=== PATIENT | male | born 1985 | race Caucasian/White ===

== ENCOUNTER 2019-06-05 22:07 | Emergency (ER) | payer OTHER ==
[~2019-06-05] VITALS: Ht 172.7 cm; Wt 87.1 kg
[2019-06-05 22:11] VITALS: BP 167/103
--- NOTE | 2019-06-05 22:22 | NUR ---
PT AMBULATED TO LOBBY TO A/W BED
--- NOTE | 2019-06-05 22:26 | NUR ---
AMBULATED TO ER BED 9
--- NOTE | 2019-06-05 22:30 | NUR ---
PT LAC SOAKED IN WARM WATER WITH BETADINE
[2019-06-05] MEDS ORDERED: LIDOCAINE MPF 1% 10 MG/ML VIAL INJ ONE (22:40)
--- NOTE | 2019-06-05 22:40 | NUR ---
DR. WILBURN AT BEDSIDE EXAMING PT
--- NOTE | 2019-06-05 22:42 | NUR ---
33 Y/O MALE C/O HUMAN BITE TO LEFT MIDDLE FINGER WITH 10/10 PAIN X 40 MIN AGO. VSS. BED LOW AND LOCKED AND 1 SIDERAIL UP. DENIES N/V/D; SKIN IS PINK/WARM/DRY; AAOX4 WITH EVEN AND STEADY GAIT; PT DENIES ANY FEVER, CP, SOB, OR COUGH AT THIS TIME; PATIENT POSITIONED FOR COMFORT; HOB ELEVATED. MEDICAL HX: PT DENIES NKA
--- NOTE | 2019-06-05 22:44 | NUR ---
LAC TRAY SET UP AT BED SIDE, NURSE NOTIFIED
--- NOTE | 2019-06-05 23:30 | NUR ---
PT SITTING ON EDGE OF BED SOAKING LEFT MIDDLE FINGER. VSS. RR EVEN AND UNLABORED. WILL CONTINUE TO MONITOR.
--- NOTE | 2019-06-05 23:35 | NUR ---
DR. WILBURN ADMINISTERED LIDO
[2019-06-05] MEDS ORDERED: BACITRACIN OINT 500 UNITS/GM PKT TP ONE ×2 (23:43→23:45)
[2019-06-05] MEDS ORDERED: ACETAMINOPHEN EXTRA STRENGTH 500 MG TAB PO ONE (23:45)
--- NOTE | 2019-06-06 00:02 | NUR ---
PT LAC CLEANED WITH NORMAL SALINE AND 4X4 GUAZE PADS, BACITRACIN APPLIED AND WRAPED WITH NON ADHERENT PAD AND 2" GAUZE ROLL ON LEFT 3RD DIGIT FINGER
[2019-06-06 00:08] VITALS: BP 148/88
== END 2019-06-06 00:08 | disposition home or self-care (01) ==
LOC: MED 22:07
DX: S61.213A Laceration without foreign body of left middle finger without damage to nail, initial encounter (principal); Y04.1XXA Assault by human bite, initial encounter; Y93.89 Activity, other specified; Y92.89 Other specified places as the place of occurrence of the external cause; Y99.8 Other external cause status
CPT/HCPCS: 12001; 73130; 90471; 90715; 99283; J2001; Q0092